=== PATIENT | female | born 1990 | race Caucasian/White ===

== ENCOUNTER 2017-12-09 19:09 | Emergency (ER) | payer OTHER, MEDICAID, SELFPAY ==
--- NOTE | 2017-12-09 19:17 | ED.LOWEXIN ---
HPI - Extremity Injury (Lower) <LAURA Sheridan - Last Filed: 12/09/17 22:06> General Chief Complaint: Back Pain/Injury Stated Complaint: RT SIDE OF BACK TIGHT AND HIP Time Seen by Provider: 12/09/17 19:17 Source: patient History of Present Illness HPI Narrative: 27-year-old female here for complaint of pain to right lower back for last 4 days. She denies any trauma to the right lower back. She reports increased pain with motion of the right lower back. She denies any loss of bladder or bowel control. She states that she may have done it by holding her child that has gotten older and heavier. Patient was able to ambulate into the emergency room today. She denies any other concerns or complaints at this time. Pain radiates from the right lower back down into the right buttocks and into the right thigh area. MD complaint: other Onset (ago): day(s) Related Data Home Medications Medication Instructions Recorded Confirmed cyclobenzaprine 10 mg PO BIDP PRN 12/09/17 Previous Rx's Medication Instructions Recorded norethindrone-e.estradiol-iron 1 tab PO QDAY #3 pac 03/06/17 [Tilia Fe] [medical marijuana] PRN PRN #0 04/09/17 loratadine [Claritin] 10 mg PO QDAY PRN #30 tab 05/24/17 mupirocin 1 jenny TOPICAL QID #22 gm 07/18/17 [weight watchers] #0 08/06/17 albuterol sulfate [Ventolin HFA] 0 INH Q4H #8 gm 08/30/17 metformin [Glucophage XR] 500 mg PO QDAY #30 tab 09/16/17 topiramate [Topamax] 25 mg PO QAM #30 tab 09/16/17 sertraline [Zoloft] 200 mg PO QDAY #60 tab 10/22/17 bupropion HCl [Wellbutrin XL] 300 mg PO QDAY #30 tab 10/24/17 naproxen [Naprosyn] 500 mg PO BIDCC #30 tab 12/02/17 clonazepam 0.5 mg tablet 1 mg PO BIDP PRN #60 tab 12/06/17 prednisone 40 mg PO DAILY #8 tab 12/09/17 Allergies Allergy/AdvReac Type Severity Reaction Status Date / Time gabapentin [GABAPENTIN] Allergy Unknown Verified 12/09/17 19:27 indomethacin [INDOMETHACIN] Allergy Unknown Verified 12/09/17 19:27 oxycodone [OXYCODONE] Allergy Unknown Verified 12/09/17 19:27 sulfamethoxazole Allergy Unknown Verified 12/09/17 19:27 [From BACTRIM] trimethoprim [From BACTRIM] Allergy Unknown Verified 12/09/17 19:27 Review of Systems <LAURA Sheridan - Last Filed: 12/09/17 22:06> Constitutional Denies chills, Denies fever(s), Denies lethargy and Denies weakness Eyes Denies change in vision, Denies eye discharge, Denies irritation and Denies loss of vision Cardiovascular Denies chest pain, Denies irregular heart rhythm, Denies lightheadedness, Denies palpitations and Denies orthopnea Gastrointestinal Gastrointestinal: Denies abdominal pain, Denies change in bowel habits, Denies diarrhea, Denies nausea and Denies vomiting Musculoskeletal Comments: Right lower back pain radiating into right upper extremity Integumentary/Breasts Denies pruritus, Denies erythema, Denies rash and Denies wounds Neurologic Denies confusion, Denies loss of vision and Denies weakness Psychiatric Denies anxiety, Denies confusion, Denies depression, Denies homicidal ideation and Denies suicidal ideation Endocrine Denies palpitations Exam <LAURA Sheridan - Last Filed: 12/09/17 22:06> Initial Vital Signs Initial Vital Signs: Vital Signs Temperature 98.7 F 12/09/17 19:21 Pulse Rate 107 H 12/09/17 19:21 Respiratory Rate 15 12/09/17 19:21 Blood Pressure 120/89 H 12/09/17 19:21 Pulse Oximetry 99 12/09/17 19:21 Const General: cooperative and well developed Nutritional Appearance: well nourished Orientation: alert, awake, oriented x3 and not confused HENMT Face and sinus: sinus tenderness and dry mucous membranes Mouth: oral mucosae normal and moist mucous membranes Throat: tonsils normal and uvula midline Eyes Conjunctivae: conjunctivae normal Sclera: sclerae normal Pupils: PERRL EOM: EOM intact bilaterally Resp Effort & Inspection: normal respiratory effort, able to speak in complete sentences, no respiratory distress and no use of accessory muscles Auscultation: clear to auscultation bilaterally, no rales, no rhonchi and no wheezes Cardio Rate: regular rate Rhythm: regular rhythm Heart Sounds: no click, no gallops, no murmurs and no rubs Pulses: normal peripheral pulses Back/Spine/Pelvis Other: Tenderness on palpation to the paraspinals of the right lumbar region. Muscle spasm to right lumbar paraspinals. No midline tenderness. No deformities. Distal sensation is intact. Distal range of motion is intact. Distal pulses intact Skin General: no rashes or lesions noted, No jaundice and No petechiae <Steve Xiong DO - Last Filed: 12/10/17 04:22> Initial Vital Signs Initial Vital Signs: Vital Signs Temperature 98.7 F 12/09/17 19:21 Pulse Rate 107 H 12/09/17 19:21 Respiratory Rate 15 12/09/17 19:21 Blood Pressure 120/89 H 12/09/17 19:21 Pulse Oximetry 99 12/09/17 19:21 Course <LAURA Sheridan - Last Filed: 12/09/17 22:06> Vital Signs - 8 hr 12/09/17 21:19 Temperature 96.9 F L Pulse Rate 99 H Respiratory Rate 16 Blood Pressure [Left Arm] 106/72 Pulse Oximetry 99 <DO Kassidy Wharton Last Filed: 12/10/17 04:22> Vital Signs - 8 hr 12/09/17 21:19 Temperature 96.9 F L Pulse Rate 99 H Respiratory Rate 16 Blood Pressure [Left Arm] 106/72 Pulse Oximetry 99 MDM - Extremity Injury (Lower) <LAURA Sheridan - Last Filed: 12/09/17 22:06> MDM Narrative Medical decision making narrative: Signs and symptoms presents as lumbar strain with sciatica. She is already prescribed cyclobenzaprine will have her continue taking muscle relaxers as prescribed. Skhe-ada-kirrsrc ibuprofen as needed for discomfort. She is given short course of prednisone to help with inflammation. Follow up with primary care provider. Return emergency room for any worsening symptoms. Heat to area 20 min at a time a few times date help keep muscles loose. Gentle range of motion to painful areas to also keep muscles loose. Discharge Plan Departure Patient Disposition: Home, Self-Care Clinical Impression: Lower back pain Discharge Date/Time: 12/09/17 21:31 Interventions: ED Discharge Assessment Last Done: 12/09/17 21:31 Instructions: DI for Low Back Pain Activity Restrictions/Additional Instructions: Signs and symptoms presents as lumbar strain with sciatica. Use already prescribed cyclobenzaprine as prescribed. [id number] ibuprofen as needed for discomfort. You are prescribed a hort course of prednisone to help with inflammation use as directed. Follow up with primary care provider. Return emergency room for any worsening symptoms. Heat to area 20 min at a time a few times date help keep muscles loose. Gentle range of motion to painful areas to also keep muscles loose. Prescriptions: New prednisone 20 mg tablet 40 mg PO DAILY Qty: 8 RF: 0 No Action norethindrone-e.estradiol-iron [Tilia Fe] 1 EACH tablet 1 tab PO QDAY Qty: 3 RF: 3 [medical marijuana] PRN PRNQty: 0 RF: 0 loratadine [Claritin] 10 MG tablet 10 mg PO QDAY PRNQty: 30 RF: 3 mupirocin 2 % ointment 1 jenny Topical QID Qty: 22 RF: 1 [weight watchers] Qty: 0 RF: 0 albuterol sulfate [Ventolin HFA] 90 MCG/PUFF HFA aerosol inhaler INH Q4H Qty: 8 RF: 0 topiramate [Topamax] 25 MG tablet 25 mg PO QAM Qty: 30 RF: 3 metformin [Glucophage XR] 500 MG tablet extended release 24 hr 500 mg PO QDAY Qty: 30 RF: 3 sertraline [Zoloft] 100 MG tablet 200 mg PO QDAY Qty: 60 RF: 3 bupropion HCl [Wellbutrin XL] 300 MG tablet extended release 24 hr 300 mg PO QDAY Qty: 30 RF: 3 naproxen [Naprosyn] 500 mg tablet 500 mg PO BIDCC Qty: 30 RF: 0 clonazepam 0.5 mg tablet 1 mg PO BIDP PRN (Reason: anxiety) Qty: 60 RF: 3 cyclobenzaprine 10 MG tablet 10 mg PO BIDP PRN (Reason: Pain, Moderate) RF: 0 Referrals: Vanda Dominguez PA-C [Primary Care Provider] -
[2017-12-09 19:21] VITALS: BP 120/89; PULSE 107; RESP 15; TEMP 37.1; O2SAT 99; BMI 42.5
--- NOTE | 2017-12-09 19:37 | PC.NURSE ---
rt hip/back pain, radiates down rt leg with numbness/tingling, no known injury, acute on chronic, amb ind with steady gait, also c/o urinary hesitancy/trouble emptying bladder,denies injury/fever/chills/incont/cp/soa or recent illness
[2017-12-09 21:19] VITALS: BP 106/72; PULSE 99; RESP 16; TEMP 36.1; O2SAT 99
== END 2017-12-09 21:31 | disposition home or self-care (01) ==
PROVIDERS: Emergency Provider Nurse Practitioner Family; Family Provider Specialist; PCP Physician Assistant
DX: M54.5 Low back pain (principal)
CPT/HCPCS: 99282

== ENCOUNTER → 2018-03-13 16:03 | Outpatient (CLI) | payer OTHER, MEDICAID, SELFPAY ==
[2018-03-13 17:37] LABS: Add Manual Diff / Slide Review NO; Basophils Percent Auto 0.7 % (0-2); Eosinophils Percent Auto 1.7 % (2-4); Hematocrit 39.4 % (36-46); Hemoglobin 13.5 g/dL (12.0-16.0); Lymphocytes Percent Auto 21.1 % (25-40); Mean Corpuscular HGB Conc 34.3 % (30-36); Mean Corpuscular Hemoglobin 28.5 PG (26-34); Monocytes Percent Auto 6.8 % (3-14); Neutrophils Absolute Auto 4700 /uL (3000-5900); Neutrophils Percent Auto 69.7 % (50-75); Platelet Count 264 X10^3/uL (150-400); Red Blood Cell Count 4.74 X10^6/uL (4.0-5.2); Red Cell Distribution Width 13.5 % (11.6-14.8); White Blood Cell Count 6.8 X10^3/uL (4.5-11.0)
[2018-03-13 17:49] LABS: Alanine Aminotransferase 39 IU/L (9-52); Albumin 4.3 g/dL (3.5-5.0); Albumin Globulin Ratio 1.3 (1.0-2.8); Alkaline Phosphatase 85 U/L (38-126); Aspartate Aminotransferase 25 IU/L (14-36); Bilirubin Total 0.2 mg/dL (0.2-1.3); Blood Urea Nitrogen 8 mg/dL (7-17); Calcium 9.4 mg/dL (8.4-10.2); Carbon Dioxide 27 mmol/L (22-32); Chloride 105 mmol/L (98-107); Estimated Glomerular Filt Rate > 60.0 mL/min (>60); Globulin 3.2 g/dL (1.7-4.1); Glucose 84 mg/dL (70-100); HEMOLYSIS < 15 (0-50); Potassium 4.2 mmol/L (3.4-5.1); Sodium 144 mmol/L (137-145); Total Protein 7.5 g/dL (6.3-8.2)
[2018-03-13 18:17] LABS: TSH w/ Reflex to FT4 1.49 uIU/mL (0.47-4.68)
== END ==
PROVIDERS: Family Provider Specialist; PCP Family Medicine
DX: F43.10 Post-traumatic stress disorder, unspecified (principal)
CPT/HCPCS: 36415; 80053; 84443; 85025

== ENCOUNTER → 2018-03-20 11:24 | Outpatient (CLI) | payer OTHER, MEDICAID, SELFPAY ==
--- NOTE | 2018-03-20 11:29 | DI.RAD.S_ITS ---
PROCEDURE: XR KNEE LT 3V INDICATIONS: left knee pain TECHNIQUE: 3 views of the knee were acquired. COMPARISON: None. FINDINGS: Bones: No fractures or dislocations. No suspicious bony lesions. Soft tissues: No joint effusion. No suspicious soft tissue calcifications. IMPRESSION: Normal for age, source of current symptoms is not seen. Dictated by: David Dela Cruz M.D. on 03/20/2018 at 12:06 Approved by: David Dela Cruz M.D. on 03/20/2018 at 12:07
--- NOTE | 2018-03-20 11:29 | DI.RAD.S_ITS ---
PROCEDURE: XR KNEE RT 3V INDICATIONS: left knee pain TECHNIQUE: 3 views of the knee were acquired. COMPARISON: None. FINDINGS: Bones: No fractures or dislocations. No suspicious bony lesions. Soft tissues: No joint effusion. No suspicious soft tissue calcifications. IMPRESSION: Normal for age, source of current symptoms is not seen. Dictated by: David Dela Cruz M.D. on 03/20/2018 at 12:07 Approved by: David Dela Cruz M.D. on 03/20/2018 at 12:07
== END ==
PROVIDERS: Family Provider Specialist; PCP Family Medicine; Visit Provider Physician Assistant
DX: M25.562 Pain in left knee (principal); M25.561 Pain in right knee
CPT/HCPCS: 73562

== ENCOUNTER → 2018-04-16 15:11 | Outpatient (CLI) | payer OTHER, MEDICAID, SELFPAY ==
--- NOTE | 2018-04-16 15:12 | DI.MRI.S_ITS ---
PROCEDURE: MR KNEE LT WO CON INDICATIONS: left KNEE PAIN TECHNIQUE: Noncontrast sagittal PD fast spin echo and T2 fast spin echo with fat saturation, sagittal 3-D FLASH with fat saturation; coronal T1 spin echo and PD fast spin echo with fat saturation, and axial PD fast spin echo with fat saturation through the knee. COMPARISON: [facility], CR, XR KNEE LT 3V, 03/20/2018, 11:08. FINDINGS: Image quality: Excellent. Menisci: The medial meniscus is intact. Linear high signal intensity horizontally traverses the anterior and posterior horns, as well as the body of the lateral meniscus, and demonstrates superior articular surface extension, indicating horizontal tearing. Small perivesical cyst is present posterolaterally. Cruciate ligaments: The anterior and posterior cruciate ligaments appear intact. Medial structures: The medial collateral ligament appears intact. Visualized portions of the pes anserinus tendons appear normal. No abnormal bursal fluid. Lateral structures: The lateral collateral ligament, long and short heads of the biceps femoris tendon appear intact. The popliteus tendon appears normal. Iliotibial band appears normal. Anterior structures: The quadriceps and patellar tendons appear intact. Patellar alignment is normal. No femoral trochlear dysplasia or ventral trochlear prominence. No edema in the infrapatellar fat pad. Bones and cartilage: No bone marrow contusions or fractures. The cartilage of the medial and lateral femorotibial compartments, as well as the patellofemoral compartment, appears normal in thickness. Joint space: There is physiologic knee joint fluid. No Dick's cyst. Normal appearing synovial plicae are incidentally noted. IMPRESSION: 1. Lateral meniscal tear. Dictated by: Timoteo Sims M.D. on 04/16/2018 at 15:56 Approved by: Timoteo Sims M.D. on 04/16/2018 at 15:59
== END ==
PROVIDERS: Family Provider Specialist; PCP Family Medicine; Visit Provider Physician Assistant
DX: S83.282A Other tear of lateral meniscus, current injury, left knee, initial encounter (principal); M25.562 Pain in left knee
CPT/HCPCS: 73721

== ENCOUNTER → 2018-10-13 09:57 | Outpatient (CLI) | payer OTHER, MEDICAID, SELFPAY | PROVIDERS: Family Provider Specialist; PCP Family Medicine; Visit Provider Family Medicine | DX: R52 Pain, unspecified (principal); R53.83 Other fatigue; R50.9 Fever, unspecified | CPT/HCPCS: 87400 ==

== ENCOUNTER 2018-11-24 18:17 | Emergency (ER) | payer OTHER, MEDICAID, SELFPAY ==
[2018-11-24] VITALS (7 sets, daily range): BP systolic 102–124; BP diastolic 59–77; PULSE 64–88; RESP 16–26; TEMP 36.7; O2SAT 94–100; BMI 46.3
--- NOTE | 2018-11-24 18:27 | ED_ITS ---
HPI - Arrhythmia/Palpitations General Chief Complaint: Anxiety Stated Complaint: Anxiety Time Seen by Provider: 11/24/18 18:27 Source: patient and EMS Mode of arrival: EMS Limitations: no limitations History of Present Illness HPI narrative: The patient arrives by EMS complaining of chest pain, specifically along the mid right costal margin. There is no radiation of pain. She has no associated dyspnea. She does have increased pain with deep breathing. She denies a cardiac history. She is poking in broken words, complaint of anxiety. She tells me she has been like this for 2 days. She does take anxiety medications. She denies recent illness. She has had no fever or chills. She has had no cough, no chronic chest pain. She does not smoke cigarettes. She does not drink alcohol. Related Data Home Medications Medication Instructions Recorded Confirmed sertraline 100 mg tablet 150 mg PO QDAY tab 10/13/18 Previous Rx's Medication Instructions Recorded [medical marijuana] PRN PRN #0 04/09/17 albuterol sulfate HFA 90 2 puff INHALATION Q4H #8 gram 03/05/18 mcg/actuation aerosol inhaler cyclobenzaprine 10 mg tablet 10 mg PO BEDTIME #30 tab 10/13/18 metformin 500 mg tablet 500 mg PO DAILY #30 tab 10/13/18 naproxen 500 mg tablet 500 mg PO BID #60 tab 10/13/18 lorazepam [Ativan] 1 mg PO Q6H PRN #10 tab 11/24/18 Allergies Allergy/AdvReac Type Severity Reaction Status Date / Time gabapentin [GABAPENTIN] Allergy Unknown Verified 11/24/18 18:37 indomethacin [INDOMETHACIN] Allergy Unknown Verified 11/24/18 18:37 oxycodone [OXYCODONE] Allergy Unknown Verified 11/24/18 18:37 sulfamethoxazole Allergy Unknown Verified 11/24/18 18:37 [From BACTRIM] trimethoprim [From BACTRIM] Allergy Unknown Verified 11/24/18 18:37 Review of Systems Constitutional Denies chills, Denies fatigue, Denies fever(s), Denies lethargy and Reports weakness Eyes Denies change in vision, Denies eye discharge and Denies irritation ENT Ears, Nose, Mouth, and Throat: Denies dizziness, Denies neck pain, Denies sore throat and Denies throat swelling Cardiovascular Reports as per HPI, Denies chest pain, Denies syncope, Denies irregular heart rhythm, Denies lightheadedness, Denies palpitations, Denies dyspnea and Denies orthopnea Respiratory Denies cough, Denies dyspnea and Denies wheezing Gastrointestinal Gastrointestinal: Denies abdominal pain, Denies diarrhea, Denies nausea and De nies vomiting Musculoskeletal Denies back pain, Reports muscle weakness and Denies neck pain Integumentary/Breasts Denies pruritus, Denies erythema, Denies rash and Denies wounds Neurologic Denies confusion, Denies dizziness, Denies syncope, Denies tremor(s) and Reports weakness Comments: Difficulty speaking. Psychiatric Reports anxiety, Denies confusion, Reports depression, Denies homicidal ideation and Denies suicidal ideation Endocrine Denies fatigue and Denies palpitations Allergic/Immunologic Denies throat swelling and Denies wheezing [facility] Medical History Anxiety (Chronic) Carpal tunnel syndrome (Chronic 2011) Chronic back pain (Chronic) DDD (degenerative disc disease), lumbar (Chronic 2008) Depression (Chronic) Heavy menstrual period (Chronic) Hip pain (Chronic 2008) Irregular menstrual cycle (Chronic) PCOS (polycystic ovarian syndrome) (Chronic) PTSD (post-traumatic stress disorder) (Chronic) Painful menstrual periods (Chronic) Pineal gland cyst (Chronic) Sleep apnea (Chronic) Surgical History Hx of section (Resolved 06/2016) Status post cholecystectomy (06/17/15) Status post tonsillectomy and adenoidectomy Family History (Updated 03/03/18 @ 14:57 by Steffanie Ervin LPN) Mother Age: 60 Uterine cancer Mental health problem Father No problems noted. Grandfather Diabetes mellitus Social History Smoking Status: Never smoker Family History Mother Age: 60 Uterine cancer Mental health problem Father No problems noted. Grandfather Diabetes mellitus Social History Smoking Status: Never smoker Exam Initial Vital Signs Initial Vital Signs: Vital Signs Temperature 98.1 F 11/24/18 18:29 Pulse Rate 88 11/24/18 18:29 Respiratory Rate 26 H 11/24/18 18:29 Blood Pressure 114/60 11/24/18 18:29 Pulse Oximetry 96 11/24/18 18:29 Const General: cooperative, well developed, in distress and anxious Nutritional Appearance: well nourished Orientation: alert, awake and oriented x3 HENMT Head: normocephalic and atraumatic Mouth: moist mucous membranes Teeth and gingiva: dentition normal Throat: tonsils normal and uvula midline Eyes General: appearance normal, both eyes and all related structures Eyelids: eyelids normal Conjunctivae: conjunctivae normal Sclera: sclerae normal Pupils: PERRL EOM: EOM intact bilaterally Neck Neck: normal visual inspection, trachea midline, No lymphadenopathy, No midline deformity and No JVD Chest Chest: normal inspection of the chest Resp Effort & Inspection: normal respiratory effort, able to speak in complete sentences, no respiratory distress and no use of accessory muscles Auscultation: clear to auscultation bilaterally, no rales, no rhonchi and no wheezes Cardio Rate: regular rate Rhythm: regular rhythm Heart Sounds: no click, no gallops, no murmurs and no rubs Pulses: normal peripheral pulses Back/Spine/Pelvis Back: No CVA tenderness Cervical Spine: cervical ROM normal Thoracic/Lumbar Spine: thoracic and lumbar spine normal to inspection Skin General: no rashes or lesions noted, No jaundice and No petechiae Neuro General: alert, oriented x3, gait normal and no focal motor deficits Speech: speech normal Extrem General: full ROM, no clubbing, cyanosis or edema, no pedal edema and no calf tenderness Psych Mental Status: mental status grossly normal Attitude: cooperative Thought Content: normal and suicidality Judgment: judgment good Course Orders Ordered: Discontinued Medications Ketorolac Tromethamine (Toradol) 30 mg IV NOW ONE Stop: 11/24/18 19:16 Last Admin: 11/24/18 19:37 Dose: 30 mg Lorazepam (Ativan) 1 mg IV NOW ONE Stop: 11/24/18 19:16 Last Admin: 11/24/18 19:37 Dose: 1 mg Lorazepam (Ativan) 1 mg PO NOW ONE Stop: 11/24/18 22:19 Last Admin: 11/24/18 22:40 Dose: 1 mg Vital Signs - 8 hr 11/24/18 21:30 11/24/18 22:00 11/24/18 22:51 Pulse Rate 81 74 76 Respiratory Rate 25 H 20 16 Blood Pressure 103/67 Blood Pressure [Left Arm] 111/69 105/62 Pulse Oximetry 94 94 96 MDM - Arrhythmia/Palpitations Lab Data Result diagrams: 11/24/18 19:28 11/24/18 19:28 Lab Results 11/24/18 11/24/18 11/24/18 Range/Units 18:45 19:28 19:28 WBC 9.4 (4.5-11.0) X10^3/uL RBC 4.64 (4.0-5.2) X10^6/uL Hgb 12.9 (12.0-16.0) g/dL Hct 39.0 (36-46) % MCV 83.9 (80-100) fL MCH 27.9 (26-34) PG MCHC 33.2 (30-36) % RDW 14.1 (11.6-14.8) % Plt Count 166 (150-400) X10^3/uL Neut % (Auto) 68.1 (50-75) % Lymph % (Auto) 22.6 L (25-40) % [facility] % (Auto) 6.9 (3-14) % Eos % (Auto) 1.3 L (2-4) % Baso % (Auto) 1.1 (0-2) % Neut # (Auto) 6400 (8903-1732) /uL Lymph # (Auto) 2100 (3047-7959) /uL [facility] # (Auto) 700 (0-900) /uL Eos # (Auto) 100 (0-450) /uL Baso # (Auto) 100 (0-100) /uL Sodium 136 L (137-145) mmol/L Potassium 4.7 (3.4-5.1) mmol/L Chloride 100 (98-107) mmol/L Carbon Dioxide 25 (22-32) mmol/L BUN 16 (7-17) mg/dL Creatinine 0.50 L (0.52-1.04) mg/dL Estimated GFR > 60.0 (>60) mL/min BUN/Creatinine Ratio 32.0 H (6-22) Glucose 94 (70-100) mg/dL Calcium 9.2 (8.4-10.2) mg/dL Total Bilirubin 0.3 (0.2-1.3) mg/dL AST 26 (14-36) IU/L ALT 41 (9-52) IU/L Alkaline Phosphatase 87 (38-126) U/L Total Creatine Kinase TNP Troponin I TNP Total Protein 7.5 (6.3-8.2) g/dL Albumin 4.1 (3.5-5.0) g/dL Globulin 3.4 (1.7-4.1) g/dL Albumin/Globulin Ratio 1.2 (1.0-2.8) Urine Opiates Screen Negative (Negative) Ur Oxycodone Screen Positive H (Negative) Urine Methadone Screen Negative (Negative) Ur Barbiturates Screen Negative (Negative) U Tricyclic Antidepress Negative (Negative) Ur Phencyclidine Scrn Negative (Negative) Ur Amphetamines Screen Negative (Negative) U Methamphetamines Scrn Negative (Negative) Ur MDMA Scrn (Ecstasy) Negative (Negative) U Benzodiazepines Scrn Negative (Negative) Urine Cocaine Screen Negative (Negative) U Marijuana (THC) Screen Positive H (Negative) Point of Care Testing Test Results Negative Urine Dip Bedside Urine Glucose Negative Bedside Urine Bilirubin - Negative Bedside Urine Ketone - Negative Urine Specific [place] 1.015 Bedside Urine Occult Blood - Negative Bedside Urine pH 7.0 Bedside Urine Protein - Negative Bedside Urine Urobilinogen - Negative Bedside Urine Nitrite - Negative Bedside Urine Leukocytes - Negative Esterase ECG Data Attestation: I personally reviewed and interpreted this ECG as follows: (Normal sinus rhythm rate 77 beats per minute. Normal intervals. No ectopy. No acute ST T wave changes. Normal study.) Discharge Plan Departure Patient Disposition: Home Clinical Impression: Anxiety, Acute costochondritis Discharge Date/Time: 11/24/18 22:52 Interventions: ED Discharge Assessment Last Done: 11/24/18 22:51 Instructions: Costochondritis, DI for Anxiety -- Adult Activity Restrictions/Additional Instructions: Continue your current medications. Ativan 1 mg every 6 hours as needed for added relief of anxiety. Advil 3 tablets every 6 hours for pain. Call your doctor tomorrow, arrange a appointment. He discussed your treatment for anxiety. Return the ER as needed. Prescriptions: New lorazepam [Ativan] 1 mg tablet 1 mg PO Q6H PRN (Reason: anxiety) Qty: 10 RF: 0 No Action sertraline [Zoloft] 100 mg tablet 150 mg PO QDAY RF: 0 cyclobenzaprine 10 mg tablet 10 mg PO BEDTIME Qty: 30 RF: 2 naproxen 500 mg tablet 500 mg PO BID Qty: 60 RF: 0 metformin 500 mg tablet 500 mg PO DAILY Qty: 30 RF: 5 [medical marijuana] PRN PRNQty: 0 RF: 0 albuterol sulfate [Ventolin HFA] 90 mcg/actuation HFA aerosol inhaler 2 puff INHALATION Q4H Qty: 8 RF: 3 Referrals: Lillian Turner DO [Primary Care Provider] -
[2018-11-24 19:06] LABS: Urine Amphetamines Negative (Negative); Urine Barbiturates Negative (Negative); Urine Benzodiazepines Negative (Negative); Urine Cocaine Negative (Negative); Urine MDMA Negative (Negative); Urine Methadone Negative (Negative); Urine Methamphetamines Negative (Negative); Urine Morphine/Opi cutoff 2000 Negative (Negative); Urine Oxycodone Positive (Negative); Urine Phencyclidine Negative (Negative); Urine Tetrahydrocannabinol Positive (Negative); Urine Tricyclic Antidepressant Negative (Negative)
--- NOTE | 2018-11-24 19:34 | PC.NURSE ---
Patient screaming and pulling while PIV being inserted;
[2018-11-24] MEDS: KETOROLAC 60 MG/2 ML VIAL 30 MG IV (19:37)
[2018-11-24] MEDS: LORazepam 2 MG/ML SYRINGE 1 MG IV (19:37)
--- NOTE | 2018-11-24 19:43 | PC.NURSE ---
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
[2018-11-24 19:51] LABS: Hemoglobin 12.9 g/dL (12.0-16.0); Red Blood Cell Count 4.64 X10^6/uL (4.0-5.2); White Blood Cell Count 9.4 X10^3/uL (4.5-11.0)
[2018-11-24 19:52] LABS: Add Manual Diff / Slide Review NO; Alanine Aminotransferase 41 IU/L (9-52); Albumin 4.1 g/dL (3.5-5.0); Albumin Globulin Ratio 1.2 (1.0-2.8); Alkaline Phosphatase 87 U/L (38-126); Aspartate Aminotransferase 26 IU/L (14-36); Basophils Percent Auto 1.1 % (0-2); Bilirubin Total 0.3 mg/dL (0.2-1.3); Blood Urea Nitrogen 16 mg/dL (7-17); Calcium 9.2 mg/dL (8.4-10.2); Carbon Dioxide 25 mmol/L (22-32); Chloride 100 mmol/L (98-107); Eosinophils Percent Auto 1.3 % (2-4); Estimated Glomerular Filt Rate > 60.0 mL/min (>60); Globulin 3.4 g/dL (1.7-4.1); Glucose 94 mg/dL (70-100); HEMOLYSIS 23 (0-50); Lymphocytes Percent Auto 22.6 % (25-40); Mean Corpuscular HGB Conc 33.2 % (30-36); Mean Corpuscular Hemoglobin 27.9 PG (26-34); Mean Corpuscular Volume 83.9 fL (80-100); Monocytes Percent Auto 6.9 % (3-14); Neutrophils Percent Auto 68.1 % (50-75); Platelet Count 166 X10^3/uL (150-400); Potassium 4.7 mmol/L (3.4-5.1); Red Cell Distribution Width 14.1 % (11.6-14.8); Sodium 136 mmol/L (137-145); Total Protein 7.5 g/dL (6.3-8.2)
[2018-11-24 19:53] LABS: Basophils Absolute Auto 100 /uL (0-100); Eosinophils Absolute Auto 100 /uL (0-450); Lymphocytes Absolute Auto 2100 /uL (1100-4500); Monocytes Absolute Auto 700 /uL (0-900); Neutrophils Absolute Auto 6400 /uL (1500-7000)
--- NOTE | 2018-11-24 20:34 | PC.NURSE ---
patient given 240ml of water per provider. patient tolerated well. no new orders at this time.
[2018-11-24] MEDS: LORazepam 0.5 MG TABLET 1 MG PO (22:40)
== END 2018-11-24 22:52 | disposition home or self-care (01) ==
PROVIDERS: Emergency Provider Emergency Medicine; Family Provider Specialist; PCP Family Medicine
DX: F41.9 Anxiety disorder, unspecified (principal); M94.0 Chondrocostal junction syndrome [Tietze]
CPT/HCPCS: 36591; 80053; 80305; 81003; 81025; 82553; 85025; 93005; 93010; 96374; 96375; 96376; 99284; 99285; J1885; J2060

== ENCOUNTER 2018-12-01 12:18 | Emergency (ER) | payer OTHER, MEDICAID, SELFPAY ==
[2018-12-01 12:21] VITALS: BP 126/84; PULSE 82; RESP 14; TEMP 36.4; O2SAT 100
[2018-12-01 13:38] LABS: Bacteria Urine Few (2-10); RBC Urine 0-1/HPF (0-5/HPF); Squamous Epithelial Cell Urine 1-5 /HPF (0-5/HPF); WBC Urine 1-5/HPF (0-5/HPF)
[2018-12-01 13:39] LABS: Culture Indicated Urine Specimen Cultured
[2018-12-01 15:12] VITALS: BP 132/76; PULSE 62; O2SAT 99
--- NOTE | 2018-12-01 15:13 | PC.NURSE ---
Patient states bilateral legs are numb. States she thinks this could be her anxiety, or her mouth infection, or that she is sick. Informed pt that we will take care of her and to try and relax. Pt states she has taken her anxiety medications today but has ran out of her Ativan that she was given. Patient tearful and does not speak in complete sentences while talking
[2018-12-01 15:45] VITALS: BP 142/94; PULSE 62; RESP 20; O2SAT 100
[2018-12-01 15:51] LABS: Add Manual Diff / Slide Review NO; Basophils Absolute Auto 100 /uL (0-100); Eosinophils Absolute Auto 200 /uL (0-450); Eosinophils Percent Auto 1.6 % (2-4); Hemoglobin 13.5 g/dL (12.0-16.0); Lymphocytes Absolute Auto 1600 /uL (1100-4500); Lymphocytes Percent Auto 16.3 % (25-40); Mean Corpuscular HGB Conc 33.7 % (30-36); Mean Corpuscular Hemoglobin 27.9 PG (26-34); Mean Corpuscular Volume 82.8 fL (80-100); Monocytes Absolute Auto 500 /uL (0-900); Monocytes Percent Auto 5.4 % (3-14); Neutrophils Absolute Auto 7500 /uL (1500-7000); Neutrophils Percent Auto 75.7 % (50-75); Platelet Count 244 X10^3/uL (150-400); Red Blood Cell Count 4.84 X10^6/uL (4.0-5.2); Red Cell Distribution Width 14.6 % (11.6-14.8)
[2018-12-01 15:55] LABS: Alanine Aminotransferase 42 IU/L (9-52); Albumin 4.2 g/dL (3.5-5.0); Albumin Globulin Ratio 1.2 (1.0-2.8); Alkaline Phosphatase 104 U/L (38-126); Aspartate Aminotransferase 22 IU/L (14-36); Bilirubin Total 0.4 mg/dL (0.2-1.3); Blood Urea Nitrogen 7 mg/dL (7-17); Carbon Dioxide 23 mmol/L (22-32); Chloride 105 mmol/L (98-107); Creatine Kinase 42 U/L (30-135); Estimated Glomerular Filt Rate > 60.0 mL/min (>60); Globulin 3.5 g/dL (1.7-4.1); Glucose 91 mg/dL (70-100); HEMOLYSIS < 15 (0-50); Potassium 3.7 mmol/L (3.4-5.1); Sodium 139 mmol/L (137-145); Total Protein 7.7 g/dL (6.3-8.2)
[2018-12-01 16:07] LABS: Troponin I < 0.012 ng/mL (0.01-0.034)
--- NOTE | 2018-12-01 16:09 | ED.ANXIETY ---
HPI - Anxiety General Chief Complaint: Anxiety Stated Complaint: Stress/Hyperventilation/ Passed Out Time Seen by Provider: 12/01/18 16:09 Source: patient, family and EMS Mode of arrival: EMS Limitations: no limitations History of Present Illness HPI narrative: 28-year-old female comes in with complaint of headache, pain in her eye, states that her chest and arm sort of hurt her that she had pulling. She states that it was sort of her entire body feels like everything is pulling she took 2 muscle relaxers last night and then 2 hours later took a 3rd this did not resolve her symptoms. She did take some naproxen. She has also been taking BuSpar for 2 weeks. It helped with her panic attacks but she does not know if that is playing into her symptoms. 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 Patient is denying any shortness of breath currently. She has had some nausea and vomiting but currently. Patient is not having any new urinary changes. She often is constipated but no new changes. She does have anxiety and panic attacks. She is not sure if this is the same thing. She has a lot of stress her issues alcohol abuse and is frequently intubated. She also has a young child with multiple medical issues. Related Data Home Medications Medication Instructions Recorded Confirmed sertraline 100 mg tablet 200 mg PO QPM tab 10/13/18 12/01/18 [medical marijuana] 1 dose PO PRN PRN 12/01/18 12/01/18 albuterol sulfate [Ventolin HFA] 2 puff INHALATION Q4H PRN 12/01/18 12/01/18 buspirone 15 mg PO BID 12/01/18 12/01/18 prazosin 2 mg PO BEDTIME 12/01/18 12/01/18 Previous Rx's Medication Instructions Recorded cyclobenzaprine 10 mg tablet 10 mg PO BEDTIME #30 tab 10/13/18 metformin 500 mg tablet 500 mg PO DAILY #30 tab 10/13/18 naproxen 500 mg tablet 500 mg PO BID #60 tab 10/13/18 lorazepam [Ativan] 1 mg PO Q6H PRN #10 tab 11/24/18 Allergies Allergy/AdvReac Type Severity Reaction Status Date / Time gabapentin [GABAPENTIN] Allergy Unknown Verified 11/24/18 18:37 indomethacin [INDOMETHACIN] Allergy Unknown Verified 11/24/18 18:37 oxycodone [OXYCODONE] Allergy Unknown Verified 11/24/18 18:37 sulfamethoxazole Allergy Unknown Verified 11/24/18 18:37 [From BACTRIM] trimethoprim [From BACTRIM] Allergy Unknown Verified 11/24/18 18:37 Review of Systems Review of Systems ROS Unobtainable: All systems reviewed & are unremarkable except as noted in HPI and below PFSH Medical History Anxiety (Chronic) Carpal tunnel syndrome (Chronic 2011) Chronic back pain (Chronic) DDD (degenerative disc disease), lumbar (Chronic 2008) Depression (Chronic) Heavy menstrual period (Chronic) Hip pain (Chronic 2008) Irregular menstrual cycle (Chronic) PCOS (polycystic ovarian syndrome) (Chronic) PTSD (post-traumatic stress disorder) (Chronic) Painful menstrual periods (Chronic) Pineal gland cyst (Chronic) Sleep apnea (Chronic) Surgical History Hx of section (Resolved 06/2016) Status post cholecystectomy (06/17/15) Status post tonsillectomy and adenoidectomy Family History Mother Age: 61 Uterine cancer Mental health problem Father No problems noted. Grandfather Diabetes mellitus Social History Smoking Status: Never smoker Family History Mother Age: 61 Uterine cancer Mental health problem Father No problems noted. Grandfather Diabetes mellitus Social History Smoking Status: Never smoker Exam Narrative Exam Narrative: GEN: Well-nourished obese female, alert and oriented x 3, patient appears to be in mild distress. HEENT: Atraumatic, pupils are equal round reactive to light, extraocular movements are intact, nares are clear, TMs are clear with no fluid. Throat is clear without any exudates, erythema, tonsillar enlargement or uvular deviation HEART: Regular rate and rhythm without murmur, clicks, rubs. LUNGS:Lungs clear to auscultation, no wheezes, rales, crackles, chest moves symmetrically ABD:bowel sounds normal, soft, non-tender, no guarding, rebound, rigidity, no masses noted, no hepatosplenomegaly :No CVA tenderness MSCL: Non-tender, no muscle atrophy, muscles strength 5/5 upper and lower extremities, full range of motion NEURO:CN 2-12 intact, sensation normal, normal gait. PSYCH: Anxiety Initial Vital Signs Initial Vital Signs: Vital Signs Temperature 97.5 F L 12/01/18 12:21 Pulse Rate 82 12/01/18 12:21 Respiratory Rate 14 12/01/18 12:21 Blood Pressure 126/84 12/01/18 12:21 Pulse Oximetry 100 12/01/18 12:21 Scores GCS Hunter coma scale eye opening: Spontaneous [place] coma scale verbal response: Orientated [place] coma scale motor response: Obey commands Hunter coma scale total score: 15 Course Orders Ordered: ED Orders 12/01/18 12:39 Urine Culture Stat Urine Microscopic Stat 12/01/18 14:47 EKG-12 Lead Stat 12/01/18 15:34 Complete Blood Count AUTO DIFF Stat Comprehensive Metabolic Panel Stat Troponin & CK Cardiac Panel Stat 12/01/18 16:35 CT head/brain wo con Stat 12/01/18 18:18 Consult to Coating Operator Stat Discontinued Medications Acetaminophen (Tylenol) 975 mg PO NOW ONE Stop: 12/01/18 16:36 Last Admin: 12/01/18 16:43 Dose: 975 mg Lorazepam (Ativan) 1 mg PO NOW ONE Stop: 12/01/18 16:36 Last Admin: 12/01/18 16:44 Dose: 1 mg Vital Signs - 8 hr 12/01/18 12:21 12/01/18 15:12 12/01/18 15:45 Temperature 97.5 F L Pulse Rate 82 62 62 Respiratory Rate 14 20 Blood Pressure 126/84 Blood Pressure [Right Arm] 132/76 142/94 H Pulse Oximetry 100 99 100 12/01/18 16:54 12/01/18 17:21 12/01/18 18:25 Temperature 98.1 F Pulse Rate 77 74 77 Respiratory Rate 17 Blood Pressure Blood Pressure [Right Arm] 106/54 L 107/60 112/77 Pulse Oximetry 100 98 98 MDM - Anxiety Lab Data Attestation: I reviewed the patient's lab results. Result diagrams: 12/01/18 15:34 12/01/18 15:34 Lab Results 12/01/18 12/01/18 12/01/18 Range/Units 12:39 15:34 15:34 WBC 10.0 (4.5-11.0) X10^3/uL RBC 4.84 (4.0-5.2) X10^6/uL Hgb 13.5 (12.0-16.0) g/dL Hct 40.0 (36-46) % MCV 82.8 (80-100) fL MCH 27.9 (26-34) PG MCHC 33.7 (30-36) % RDW 14.6 (11.6-14.8) % Plt Count 244 (150-400) X10^3/uL Neut % (Auto) 75.7 H (50-75) % Lymph % (Auto) 16.3 L (25-40) % [place] % (Auto) 5.4 (3-14) % Eos % (Auto) 1.6 L (2-4) % Baso % (Auto) 1.0 (0-2) % Neut # (Auto) 7500 H (6839-8620) /uL Lymph # (Auto) 1600 (0973-3964) /uL [place] # (Auto) 500 (0-900) /uL Eos # (Auto) 200 (0-450) /uL Baso # (Auto) 100 (0-100) /uL Sodium 139 (137-145) mmol/L Potassium 3.7 (3.4-5.1) mmol/L Chloride 105 (98-107) mmol/L Carbon Dioxide 23 (22-32) mmol/L BUN 7 (7-17) mg/dL Creatinine 0.50 L (0.52-1.04) mg/dL Estimated GFR > 60.0 (>60) mL/min BUN/Creatinine Ratio 14.0 (6-22) Glucose 91 (70-100) mg/dL Calcium 9.0 (8.4-10.2) mg/dL Total Bilirubin 0.4 (0.2-1.3) mg/dL AST 22 (14-36) IU/L ALT 42 (9-52) IU/L Alkaline Phosphatase 104 (38-126) U/L Total Creatine Kinase 42 (30-135) U/L CK-MB (CK-2) TNP CK-MB (CK-2) Rel Index TNP Troponin I < 0.012 (0.01-0.034) ng/mL Total Protein 7.7 (6.3-8.2) g/dL Albumin 4.2 (3.5-5.0) g/dL Globulin 3.5 (1.7-4.1) g/dL Albumin/Globulin Ratio 1.2 (1.0-2.8) Urine RBC 0-1/hpf (0-5/HPF) Urine WBC 1-5/hpf (0-5/HPF) Ur Squamous Epith Cells 1-5 /hpf (0-5/HPF) Urine Bacteria Few (2-10) H (None) Ur Culture Indicated? Specimen cultured Point of Care Testing Test Results Negative Urine Dip Bedside Urine Glucose Negative Bedside Urine Bilirubin - Negative Bedside Urine Ketone - Negative Bedside Urine Occult Blood - Negative Bedside Urine Protein - Negative Bedside Urine Urobilinogen - Negative Bedside Urine Nitrite - Negative Bedside Urine Leukocytes - Negative Esterase Imaging Data CT scan - head: Radiologist's impression: Deb Prince 28 F 1990 [place] [address] CT Scan Report Signed Patient: Deb Prince AMR#: [id number] : 1990Acct:[id number] Age/Sex: 28 / FDate of Service: 12/01/18 Loc: ED Accession Number: [id number] Procedure: CT head/brain wo con Ordering Provider: Stephanie Fried D.O. PROCEDURE: CT HEAD/BRAIN WO CON INDICATIONS: headache, hx pineal gland cyst TECHNIQUE: Noncontrast 4.5 mm thick angled axial sections acquired from the foramen magnum to the vertex, with coronal and sagittal reformats. For radiation dose reduction, the following was used: automated exposure control, adjustment of mA and/or kV according to patient size. COMPARISON: [facility], MR, BRAIN W&WO CONTRAST, 02/03/2016, 8:58. FINDINGS: Image quality: Excellent. CSF spaces: Basal cisterns are patent. No extra-axial fluid collections. Ventricles are normal in size and shape. Brain: There is a 9 x 13 mm cyst in the pineal area, unchanged compared to the prior MRI dated 02/03/2016. No midline shift. No intracranial hemorrhage. [place]-white matter interface is normal. Skull and face: Calvarium and visualized facial bones are intact, without suspicious lesions. Sinuses: Visualized sinuses and mastoids are clear. IMPRESSION: 1. No acute intracranial abnormalities. 2. 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 No hydrocephalus. Dictated by: Marie Farmer M.D. on 12/01/2018 at 15:55 Approved by: Marie Farmer M.D. on 12/01/2018 at 16:04 ECG Data Attestation: I personally reviewed and interpreted this ECG as follows: Interpretation: Sinus rhythm with a rate of 71 P are 128 QRS of 100 and QTC of 412. No ST changes appreciated. MDM Narrative Medical decision making narrative: Patient is feeling improved after some Ativan p.o. and Tylenol. Social Work also evaluated her. I suspect patient is having a little bit of migraine as well as stress reaction. She has significant daily stress in her marital relationship is frequently hospitalized and intubated for alcohol abuse, she has a young child with multiple medical issues and she also has currently been treated for anxiety, PTSD. Patient was feeling much better head CT did not show any acute changes to show her pineal gland cyst with no change. Lab work does not show any major changes as well. Point care urine was negative but was sent for microscopy and cultured. test was negative as well.Patient was able to ambulate and felt much better and felt safe to return home. She is accompanied by her [id number] whom she is close too. Discharge Plan Departure Patient Disposition: Home Clinical Impression: Anxiety Headache Qualifiers: Headache type: unspecified Discharge Date/Time: 12/01/18 18:39 Interventions: ED Discharge Assessment Last Done: 12/01/18 18:36 Activity Restrictions/Additional Instructions: Follow-up with your physician in the next 2-3 days for recheck. Call for an appointment. Continue home medications as prescribed. Return to the emergency department for passing out, new chest pain, shortness of breath, persistent vomiting, vision changes, new weakness, numbness or other new or concerning symptoms. Prescriptions: No Action sertraline [Zoloft] 100 mg tablet 200 mg PO QPM RF: 0 cyclobenzaprine 10 mg tablet 10 mg PO BEDTIME Qty: 30 RF: 2 naproxen 500 mg tablet 500 mg PO BID Qty: 60 RF: 0 metformin 500 mg tablet 500 mg PO DAILY Qty: 30 RF: 5 prazosin 1 mg capsule 2 mg PO BEDTIME RF: 0 buspirone 15 mg tablet 15 mg PO BID RF: 0 albuterol sulfate [Ventolin HFA] 90 mcg/actuation HFA aerosol inhaler 2 puff INHALATION Q4H PRN (Reason: Shortness Of Breath) RF: 0 [medical marijuana] 1 dose PO PRN PRN (Reason: as directed) RF: 0 lorazepam [Ativan] 1 mg tablet 1 mg PO Q6H PRN (Reason: anxiety) Qty: 10 RF: 0 Referrals: Lillian Turner DO [Primary Care Provider] -
--- NOTE | 2018-12-01 16:20 | ED_ITS ---
HPI - Anxiety General Chief Complaint: Anxiety Stated Complaint: Stress/Hyperventilation/ Passed Out Time Seen by Provider: 12/01/18 16:09 Source: patient, family and EMS Mode of arrival: EMS Limitations: no limitations History of Present Illness HPI narrative: 28-year-old female comes in with complaint of headache, pain in her eye, states that her chest and arm sort of hurt her that she had pulling. She states that it was sort of her entire body feels like everything is pulling she took 2 muscle relaxers last night and then 2 hours later took a 3rd this did not resolve her symptoms. She did take some naproxen. She has also been taking BuSpar for 2 weeks. It helped with her panic attacks but she does not know if that is playing into her symptoms. 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 Patient is denying any shortness of breath currently. She has had some nausea and vomiting but currently. Patient is not having any new urinary changes. She often is constipated but no new changes. She does have anxiety and panic attacks. She is not sure if this is the same thing. She has a lot of stress her issues alcohol abuse and is frequently intubated. She also has a young child with multiple medical issues. Related Data Home Medications Medication Instructions Recorded Confirmed sertraline 100 mg tablet 200 mg PO QPM tab 10/13/18 12/01/18 [medical marijuana] 1 dose PO PRN PRN 12/01/18 12/01/18 albuterol sulfate [Ventolin HFA] 2 puff INHALATION Q4H PRN 12/01/18 12/01/18 buspirone 15 mg PO BID 12/01/18 12/01/18 prazosin 2 mg PO BEDTIME 12/01/18 12/01/18 Previous Rx's Medication Instructions Recorded cyclobenzaprine 10 mg tablet 10 mg PO BEDTIME #30 tab 10/13/18 metformin 500 mg tablet 500 mg PO DAILY #30 tab 10/13/18 naproxen 500 mg tablet 500 mg PO BID #60 tab 10/13/18 lorazepam [Ativan] 1 mg PO Q6H PRN #10 tab 11/24/18 Allergies Allergy/AdvReac Type Severity Reaction Status Date / Time gabapentin [GABAPENTIN] Allergy Unknown Verified 11/24/18 18:37 indomethacin [INDOMETHACIN] Allergy Unknown Verified 11/24/18 18:37 oxycodone [OXYCODONE] Allergy Unknown Verified 11/24/18 18:37 sulfamethoxazole Allergy Unknown Verified 11/24/18 18:37 [From BACTRIM] trimethoprim [From BACTRIM] Allergy Unknown Verified 11/24/18 18:37 Review of Systems Review of Systems ROS Unobtainable: All systems reviewed & are unremarkable except as noted in HPI and below PFSH Medical History Anxiety (Chronic) Carpal tunnel syndrome (Chronic 2011) Chronic back pain (Chronic) DDD (degenerative disc disease), lumbar (Chronic 2008) Depression (Chronic) Heavy menstrual period (Chronic) Hip pain (Chronic 2008) Irregular menstrual cycle (Chronic) PCOS (polycystic ovarian syndrome) (Chronic) PTSD (post-traumatic stress disorder) (Chronic) Painful menstrual periods (Chronic) Pineal gland cyst (Chronic) Sleep apnea (Chronic) Surgical History Hx of section (Resolved 06/2016) Status post cholecystectomy (06/17/15) Status post tonsillectomy and adenoidectomy Family History Mother Age: 61 Uterine cancer Mental health problem Father No problems noted. Grandfather Diabetes mellitus Social History Smoking Status: Never smoker Family History Mother Age: 61 Uterine cancer Mental health problem Father No problems noted. Grandfather Diabetes mellitus Social History Smoking Status: Never smoker Exam Narrative Exam Narrative: GEN: Well-nourished obese female, alert and oriented x 3, patient appears to be in mild distress. HEENT: Atraumatic, pupils are equal round reactive to light, extraocular movements are intact, nares are clear, TMs are clear with no fluid. Throat is clear without any exudates, erythema, tonsillar enlargement or uvular deviation HEART: Regular rate and rhythm without murmur, clicks, rubs. LUNGS:Lungs clear to auscultation, no wheezes, rales, crackles, chest moves symmetrically ABD:bowel sounds normal, soft, non-tender, no guarding, rebound, rigidity, no masses noted, no hepatosplenomegaly :No CVA tenderness MSCL: Non-tender, no muscle atrophy, muscles strength 5/5 upper and lower extremities, full range of motion NEURO:CN 2-12 intact, sensation normal, normal gait. PSYCH: Anxiety Initial Vital Signs Initial Vital Signs: Vital Signs Temperature 97.5 F L 12/01/18 12:21 Pulse Rate 82 12/01/18 12:21 Respiratory Rate 14 12/01/18 12:21 Blood Pressure 126/84 12/01/18 12:21 Pulse Oximetry 100 12/01/18 12:21 Scores GCS [place] coma scale eye opening: Spontaneous [place] coma scale verbal response: Orientated [place] coma scale motor response: Obey commands [place] coma scale total score: 15 Course Orders Ordered: ED Orders 12/01/18 12:39 Urine Culture Stat Urine Microscopic Stat 12/01/18 14:47 EKG-12 Lead Stat 12/01/18 15:34 Complete Blood Count AUTO DIFF Stat Comprehensive Metabolic Panel Stat Troponin & CK Cardiac Panel Stat 12/01/18 16:35 CT head/brain wo con Stat 12/01/18 18:18 Consult to Hauling Contractor Stat Discontinued Medications Acetaminophen (Tylenol) 975 mg PO NOW ONE Stop: 12/01/18 16:36 Last Admin: 12/01/18 16:43 Dose: 975 mg Lorazepam (Ativan) 1 mg PO NOW ONE Stop: 12/01/18 16:36 Last Admin: 12/01/18 16:44 Dose: 1 mg Vital Signs - 8 hr 12/01/18 12:21 12/01/18 15:12 12/01/18 15:45 Temperature 97.5 F L Pulse Rate 82 62 62 Respiratory Rate 14 20 Blood Pressure 126/84 Blood Pressure [Right Arm] 132/76 142/94 H Pulse Oximetry 100 99 100 12/01/18 16:54 12/01/18 17:21 12/01/18 18:25 Temperature 98.1 F Pulse Rate 77 74 77 Respiratory Rate 17 Blood Pressure Blood Pressure [Right Arm] 106/54 L 107/60 112/77 Pulse Oximetry 100 98 98 MDM - Anxiety Lab Data Attestation: I reviewed the patient's lab results. Result diagrams: 12/01/18 15:34 12/01/18 15:34 Lab Results 12/01/18 12/01/18 12/01/18 Range/Units 12:39 15:34 15:34 WBC 10.0 (4.5-11.0) X10^3/uL RBC 4.84 (4.0-5.2) X10^6/uL Hgb 13.5 (12.0-16.0) g/dL Hct 40.0 (36-46) % MCV 82.8 (80-100) fL MCH 27.9 (26-34) PG MCHC 33.7 (30-36) % RDW 14.6 (11.6-14.8) % Plt Count 244 (150-400) X10^3/uL Neut % (Auto) 75.7 H (50-75) % Lymph % (Auto) 16.3 L (25-40) % [place] % (Auto) 5.4 (3-14) % Eos % (Auto) 1.6 L (2-4) % Baso % (Auto) 1.0 (0-2) % Neut # (Auto) 7500 H (3426-4974) /uL Lymph # (Auto) 1600 (3878-3620) /uL [place] # (Auto) 500 (0-900) /uL Eos # (Auto) 200 (0-450) /uL Baso # (Auto) 100 (0-100) /uL Sodium 139 (137-145) mmol/L Potassium 3.7 (3.4-5.1) mmol/L Chloride 105 (98-107) mmol/L Carbon Dioxide 23 (22-32) mmol/L BUN 7 (7-17) mg/dL Creatinine 0.50 L (0.52-1.04) mg/dL Estimated GFR > 60.0 (>60) mL/min BUN/Creatinine Ratio 14.0 (6-22) Glucose 91 (70-100) mg/dL Calcium 9.0 (8.4-10.2) mg/dL Total Bilirubin 0.4 (0.2-1.3) mg/dL AST 22 (14-36) IU/L ALT 42 (9-52) IU/L Alkaline Phosphatase 104 (38-126) U/L Total Creatine Kinase 42 (30-135) U/L CK-MB (CK-2) TNP CK-MB (CK-2) Rel Index TNP Troponin I < 0.012 (0.01-0.034) ng/mL Total Protein 7.7 (6.3-8.2) g/dL Albumin 4.2 (3.5-5.0) g/dL Globulin 3.5 (1.7-4.1) g/dL Albumin/Globulin Ratio 1.2 (1.0-2.8) Urine RBC 0-1/hpf (0-5/HPF) Urine WBC 1-5/hpf (0-5/HPF) Ur Squamous Epith Cells 1-5 /hpf (0-5/HPF) Urine Bacteria Few (2-10) H (None) Ur Culture Indicated? Specimen cultured Point of Care Testing Test Results Negative Urine Dip Bedside Urine Glucose Negative Bedside Urine Bilirubin - Negative Bedside Urine Ketone - Negative Bedside Urine Occult Blood - Negative Bedside Urine Protein - Negative Bedside Urine Urobilinogen - Negative Bedside Urine Nitrite - Negative Bedside Urine Leukocytes - Negative Esterase Imaging Data CT scan - head: Radiologist's impression: eDb Prince 28 [address] 1990 [place] [address] CT Scan Report Signed Patient: Deb Prince AMR#: [id number] : 1990Acct:[id number] Age/Sex: 28 / FDate of Service: 12/01/18 Loc: ED Accession Number: [id number] Procedure: CT head/brain wo con Ordering Provider: Stephanie Fried D.O. PROCEDURE: CT HEAD/BRAIN WO CON INDICATIONS: headache, hx pineal gland cyst TECHNIQUE: Noncontrast 4.5 mm thick angled axial sections acquired from the foramen magnum to the vertex, with coronal and sagittal reformats. For radiation dose reduction, the following was used: automated exposure control, adjustment of mA and/or kV according to patient size. COMPARISON: [facility], MR, BRAIN W&WO CONTRAST, 02/03/2016, 8:58. FINDINGS: Image quality: Excellent. CSF spaces: Basal cisterns are patent. No extra-axial fluid collections. Ventricles are normal in size and shape. Brain: There is a 9 x 13 mm cyst in the pineal area, unchanged compared to the prior MRI dated 02/03/2016. No midline shift. No intracranial hemorrhage. [place]-white matter interface is normal. Skull and face: Calvarium and visualized facial bones are intact, without suspicious lesions. Sinuses: Visualized sinuses and mastoids are clear. IMPRESSION: 1. No acute intracranial abnormalities. 2. 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 No hydrocephalus. Dictated by: Marie Farmer M.D. on 12/01/2018 at 15:55 Approved by: Marie Farmer M.D. on 12/01/2018 at 16:04 ECG Data Attestation: I personally reviewed and interpreted this ECG as follows: Interpretation: Sinus rhythm with a rate of 71 P are 128 QRS of 100 and QTC of 412. No ST changes appreciated. MDM Narrative Medical decision making narrative: Patient is feeling improved after some Ativan p.o. and Tylenol. Social Work also evaluated her. I suspect patient is having a little bit of migraine as well as stress reaction. She has significant daily stress in her marital relationship is frequently hospitalized and intub ated for alcohol abuse, she has a young child with multiple medical issues and she also has currently been treated for anxiety, PTSD. Patient was feeling much better head CT did not show any acute changes to show her pineal gland cyst with no change. Lab work does not show any major changes as well. Point care urine was negative but was sent for microscopy and cultured. test was nega tive as well.Patient was able to ambulate and felt much better and felt safe to return home. She is accompanied by her [id number] whom she is close too. Discharge Plan Departure Patient Disposition: Home Clinical Impression: Anxiety Headache Qualifiers: Headache type: unspecified Discharge Date/Time: 12/01/18 18:39 Interventions: ED Discharge Assessment Last Done: 12/01/18 18:36 Activity Restrictions/Additional Instructions: Follow-up with your physician in the next 2-3 days for recheck. Call for an appointment. Continue home medications as prescribed. Return to the emergency department for passing out, new chest pain, shortness of breath, persistent vomiting, vision changes, new weakness, numbness or other new or concerning symptoms. Prescriptions: No Action sertraline [Zoloft] 100 mg tablet 200 mg PO QPM RF: 0 cyclobenzaprine 10 mg tablet 10 mg PO BEDTIME Qty: 30 RF: 2 naproxen 500 mg tablet 500 mg PO BID Qty: 60 RF: 0 metformin 500 mg tablet 500 mg PO DAILY Qty: 30 RF: 5 prazosin 1 mg capsule 2 mg PO BEDTIME RF: 0 buspirone 15 mg tablet 15 mg PO BID RF: 0 albuterol sulfate [Ventolin HFA] 90 mcg/actuation HFA aerosol inhaler 2 puff INHALATION Q4H PRN (Reason: Shortness Of Breath) RF: 0 [medical marijuana] 1 dose PO PRN PRN (Reason: as directed) RF: 0 lorazepam [Ativan] 1 mg tablet 1 mg PO Q6H PRN (Reason: anxiety) Qty: 10 RF: 0 Referrals: Lillian Turner DO [Primary Care Provider] -
--- NOTE | 2018-12-01 16:35 | DI.CT.S_ITS ---
PROCEDURE: CT HEAD/BRAIN WO CON INDICATIONS: headache, hx pineal gland cyst TECHNIQUE: Noncontrast 4.5 mm thick angled axial sections acquired from the foramen magnum to the vertex, with coronal and sagittal reformats. For radiation dose reduction, the following was used: automated exposure control, adjustment of mA and/or kV according to patient size. COMPARISON: [facility], MR, BRAIN W&WO CONTRAST, 02/03/2016, 8:58. FINDINGS: Image quality: Excellent. CSF spaces: Basal cisterns are patent. No extra-axial fluid collections. Ventricles are normal in size and shape. Brain: There is a 9 x 13 mm cyst in the pineal area, unchanged compared to the prior MRI dated 02/03/2016. No midline shift. No intracranial hemorrhage. Villa-white matter interface is normal. Skull and face: Calvarium and visualized facial bones are intact, without suspicious lesions. Sinuses: Visualized sinuses and mastoids are clear. IMPRESSION: 1. No acute intracranial abnormalities. 2. 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 No hydrocephalus. Dictated by: Marie Farmre M.D. on 12/01/2018 at 15:55 Approved by: Marie Farmer M.D. on 12/01/2018 at 16:04
[2018-12-01] MEDS: ACETAMINOPHEN 325 MG TABLET 975 MG PO (16:43)
[2018-12-01] MEDS: LORazepam 0.5 MG TABLET 1 MG PO (16:44)
[2018-12-01 16:54] VITALS: BP 106/54; PULSE 77; O2SAT 100
[2018-12-01 17:21] VITALS: BP 107/60; PULSE 74; O2SAT 98
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
[2018-12-01 18:25] VITALS: BP 112/77; PULSE 77; RESP 17; TEMP 36.7; O2SAT 98
== END 2018-12-01 18:39 | disposition home or self-care (01) ==
PROVIDERS: Nurse Practitioner; Emergency Provider Emergency Medicine; PCP Family Medicine
DX: F41.9 Anxiety disorder, unspecified (principal); R51 Headache; R07.89 Other chest pain
CPT/HCPCS: 36415; 70450; 80053; 81003; 81015; 81025; 82550; 84484; 85025; 87086; 93005; 93010; 99283; 99285

== ENCOUNTER 2019-11-14 11:52 | Emergency (ER) | payer OTHER, MEDICAID, SELFPAY ==
[2019-11-14 12:10] VITALS: BP 157/94; PULSE 71; RESP 14; TEMP 36.4; O2SAT 98
--- NOTE | 2019-11-14 12:46 | PC.NURSE ---
Addendum entered by Sriram Hu 11/14/19 12:51: Original Note: Sriram Hu on sitter watch duty @12:45. Pt calm sitting with mother inlaw at the moment.
[2019-11-14] MEDS: ACETAMINOPHEN 325 MG TABLET 650 MG PO ×2 (12:52→21:35)
[2019-11-14] MEDS: LORazepam 0.5 MG TABLET 1 MG PO ×2 (12:59→21:34)
[2019-11-14 13:12] LABS: UR Morphine/Opiate cutoff 300 Negative (Negative); Ur Creatinine Normal (Normal); Ur Specific Gravity Normal (Normal); Urine Amphetamines Negative (Negative); Urine Barbiturates Negative (Negative); Urine Benzodiazepines Negative (Negative); Urine Cocaine Negative (Negative); Urine MDMA Negative (Negative); Urine Methadone Negative (Negative); Urine Methamphetamines Negative (Negative); Urine Oxycodone Negative (Negative); Urine Phencyclidine Negative (Negative); Urine Tetrahydrocannabinol Positive (Negative); Urine Tricyclic Antidepressant Negative (Negative); Urine pH Normal (Normal)
[2019-11-14 13:18] LABS: Bacteria Urine Moderate (10-30); Culture Indicated Urine Cult Not Indicated; RBC Urine 0-1/HPF (0-5/HPF); Squamous Epithelial Cell Urine 5-10 /HPF (0-5/HPF); WBC Urine 1-5/HPF (0-5/HPF)
--- NOTE | 2019-11-14 13:27 | ED.PSYCH ---
HPI - Psych <Stephanie Valdivia, SEWAGE DISPOSAL WORKER-BC - Last Filed: 11/14/19 21:14> General Chief Complaint: Psychiatric Symptoms Stated Complaint: COUPLE DAYS BEEN SUICIDAL WANTING TO KILL HERSELF Time Seen by Provider: 11/14/19 12:08 Source: patient and family Mode of arrival: Ambulatory Limitations: no limitations History of Present Illness HPI Narrative: The patient is a 29-year-old female nonsmoker, PTSD who presents with a chief complaint of suicidal thoughts and ideations. She presents with her [id number]. The patient states that she has been feeling unwell recently, has been taking her sertraline and propanolol for anxiety. She restarted her lithium last night after not taking it for several months. She states that she has multiple plans to kill herself, her [id number] states that she was hallucinating last night. The patient states that she says everything is real. The patient states that she has been increasingly stressed lately with coronavirus epidemic, staying in a small house, her recently returning from alcohol rehab. The patient states she has been very stressed recently with her 's alcohol problems. He has become critically ill and intubated multiple times due to alcohol overdose. The patient denies any alcohol or drugs other than marijuana. She states she is having trouble eating, sleeping, not drinking enough water and not being able to take care of her self. She does complain of multiple physical complaints including chronic dental pain, loose stools and headache. She denies any fevers shortness of breath chest pain. She denies any nausea vomiting. She does complain of some right ear pain Related Data Home Medications Medication Instructions Recorded Confirmed sertraline 100 mg tablet 200 mg PO QPM tab 10/13/18 12/09/18 [medical marijuana] 1 dose PO PRN PRN 12/01/18 12/09/18 buspirone 15 mg PO BID 12/01/18 12/09/18 prazosin 2 mg PO BEDTIME 12/01/18 12/09/18 Previous Rx's Medication Instructions Recorded naproxen 500 mg tablet 500 mg PO BID #60 tab 10/13/18 clonazepam 1 mg tablet 1 mg PO BID #30 tab 12/05/18 cyclobenzaprine 10 mg tablet 10 mg PO BEDTIME #30 tab 03/09/19 metformin 500 mg tablet 500 mg PO DAILY #30 tab 08/06/19 albuterol sulfate 90 mcg/actuation 2 puff INHALATION Q6H PRN #8 gram 10/12/19 aerosol inhaler Allergies Allergy/AdvReac Type Severity Reaction Status Date / Time gabapentin [GABAPENTIN] Allergy Unknown Verified 12/09/18 11:13 indomethacin [INDOMETHACIN] Allergy Unknown Verified 12/09/18 11:13 oxycodone [OXYCODONE] Allergy Unknown Verified 12/09/18 11:13 sulfamethoxazole Allergy Unknown Verified 12/09/18 11:13 [From BACTRIM] trimethoprim [From BACTRIM] Allergy Unknown Verified 12/09/18 11:13 Review of Systems <BHAVESH Rdz - Last Filed: 11/14/19 21:14> Review of Systems Narrative: GENERAL: Denies chills, fatigue, malaise, fever, sweats. HEENT: Denies sinus pain, ear pain, sore throat, difficulty swallowing, dizziness. RESPIRATORY: Denies dyspnea, cough, wheezing, hemoptysis, sputum. CARDIOVASCULAR: See HPI GASTROINTESTINAL: See HPI : Denies dysuria, frequency, incontinence, hematuria, urinary retention. MUSCULOSKELETAL: denies weakness, joint pain, or bony pain SKIN: Denies rash, skin lesions, or other NEUROLOGIC: Denies weakness, headache, numbness, change in speech, confusion, seizures, incoordination. PSYCHIATRIC: See HPI 12 point review of systems is negative except for those stated above Patient History <BHAVESH Rdz - Last Filed: 11/14/19 21:14> Medical History Anxiety (Chronic) Carpal tunnel syndrome (Chronic 2011) Chronic back pain (Chronic) DDD (degenerative disc disease), lumbar (Chronic 2008) Depression (Chronic) Heavy menstrual period (Chronic) Hip pain (Chronic 2008) Irregular menstrual cycle (Chronic) Painful menstrual periods (Chronic) PCOS (polycystic ovarian syndrome) (Chronic) Pineal gland cyst (Chronic) PTSD (post-traumatic stress disorder) (Chronic) Sleep apnea (Chronic) Surgical History Hx of section (Resolved 06/2016) Status post cholecystectomy (06/17/15) Status post tonsillectomy and adenoidectomy Family History Mother Age: 61 Uterine cancer Mental health problem Father No problems noted. Grandfather Diabetes mellitus Social History Smoking Status: Never smoker Smoking Status: Never smoker alcohol intake frequency: 0-2 drinks per day Substance Use Type: marijuana Exam <BHAVESH Rdz - Last Filed: 11/14/19 21:14> Narrative Exam Narrative: GENERAL: Obese female, teary HEAD: Atraumatic. Normocephalic. No temporal or scalp tenderness. EYES: Pupils equal round and reactive. Extraocular motions intact. No scleral icterus. No injection or drainage. ENT: Nose without bleeding, purulent drainage or septal hematoma. Throat without erythema, tonsillar hypertrophy or exudate. Uvula midline. Airway patent. Bilateral TMs pearly woodward. NECK: Trachea midline. No JVD or lymphadenopathy. Supple, nontender, no meningeal signs. CARDIOVASCULAR: Regular rate and rhythm without murmurs, gallops, or rubs. RESPIRATORY: Clear to auscultation. Breath sounds equal bilaterally. No wheezes, rales, or rhonchi. GASTROINTESTINAL: Abdomen soft, non-tender, nondistended. No hepato-splenomegaly, or palpable masses. No guarding. EXTREMITIES: No clubbing, cyanosis, or edema. No joint tenderness, effusion, or edema noted. BACK: Nontender without deformity or crepitance. No flank tenderness. NEURO: AOx3. Tangential, teary. SKIN: No rash or erythema on visible skin Initial Vital Signs Initial Vital Signs: Vital Signs Temperature 97.6 F 11/14/19 12:10 Pulse Rate 71 11/14/19 12:10 Respiratory Rate 14 11/14/19 12:10 Blood Pressure 157/94 H 11/14/19 12:10 Pulse Oximetry 98 11/14/19 12:10 <Rafa Bee DO - Last Filed: 11/14/19 21:48> Initial Vital Signs Initial Vital Signs: Vital Signs Temperature 97.6 F 11/14/19 12:10 Pulse Rate 71 11/14/19 12:10 Respiratory Rate 14 11/14/19 12:10 Blood Pressure 157/94 H 11/14/19 12:10 Pulse Oximetry 98 11/14/19 12:10 Scores <Stephanie ULYSSES ValdiviaBC - Last Filed: 11/14/19 21:14> GCS Hunter coma scale eye opening: Spontaneous [place] coma scale verbal response: Orientated [place] coma scale motor response: Obey commands Hunter coma scale total score: 15 Course <Stephanie ValdiviaULYSSESBC - Last Filed: 11/14/19 21:14> Orders Ordered: ED Orders 11/14/19 13:03 Urine Drug Screen, Rapid Stat Urine Microscopic Stat 11/14/19 13:36 Acetaminophen Stat Complete Blood Count AUTO DIFF Stat Comprehensive Metabolic Panel Stat Ethanol (ETOH) Stat Ida Stat Partial Thromboplastin Time Stat Prothrombin Time INR Stat Salicylate Stat Thyroid Stimulating Hormone Stat Discontinued Medications Acetaminophen (Tylenol) 650 mg PO NOW ONE Stop: 11/14/19 12:34 Last Admin: 11/14/19 12:52 Dose: 650 mg Documented by: ALVARADO Acetaminophen (Tylenol) 650 mg PO NOW ONE Stop: 11/14/19 21:02 Last Admin: 11/14/19 21:35 Dose: 650 mg Documented by: ERICKA Loratadine (Claritin) 10 mg PO NOW ONE Stop: 11/14/19 21:02 Lorazepam (Ativan) 1 mg PO NOW ONE Stop: 11/14/19 12:55 Last Admin: 11/14/19 12:59 Dose: 1 mg Documented by: ALVARADO Lorazepam (Ativan) 1 mg PO NOW ONE Stop: 11/14/19 19:23 Last Admin: 11/14/19 21:34 Dose: 1 mg Documented by: ERICKA Consultations Consultation #1: Sriram VIEIRA in with patient. Patient appears teary. Time: 16:00 Consultation #2: Sriram VIEIRA and with patient, discussing voluntary admission. Patient remains voluntary at this time. I discussed with ISHA, patient remains suicidal, suicidal plan with attempt yesterday as well as paranoid. Per ISHA, she attempted to overdose on ibuprofen and was stopped by her . She also tried to jump out of the car on the way here today. She appears to be paranoid, and does not know were reality ends and her video games start. Patient remains voluntary, understanding of plan for admission. Time: 20:00 Vital Signs Vital signs: Vital Signs - 8 hr 11/14/19 17:43 Pulse Rate 68 Blood Pressure [Right Arm] 117/71 Pulse Oximetry 97 <Rafa Bee DO - Last Filed: 11/14/19 21:48> Orders Ordered: ED Orders 11/14/19 13:03 Urine Drug Screen, Rapid Stat Urine Microscopic Stat 11/14/19 13:36 Acetaminophen Stat Complete Blood Count AUTO DIFF Stat Comprehensive Metabolic Panel Stat Ethanol (ETOH) Stat Ida Stat Partial Thromboplastin Time Stat Prothrombin Time INR Stat Salicylate Stat Thyroid Stimulating Hormone Stat Discontinued Medications Acetaminophen (Tylenol) 650 mg PO NOW ONE Stop: 11/14/19 12:34 Last Admin: 11/14/19 12:52 Dose: 650 mg Documented by: ALVARADO Acetaminophen (Tylenol) 650 mg PO NOW ONE Stop: 11/14/19 21:02 Last Admin: 11/14/19 21:35 Dose: 650 mg Documented by: ERICKA Loratadine (Claritin) 10 mg PO NOW ONE Stop: 11/14/19 21:02 Lorazepam (Ativan) 1 mg PO NOW ONE Stop: 11/14/19 12:55 Last Admin: 11/14/19 12:59 Dose: 1 mg Documented by: ALVARADO Lorazepam (Ativan) 1 mg PO NOW ONE Stop: 11/14/19 19:23 Last Admin: 11/14/19 21:34 Dose: 1 mg Documented by: ERICKA Vital Signs Vital signs: Vital Signs - 8 hr 11/14/19 17:43 Pulse Rate 68 Blood Pressure [Right Arm] 117/71 Pulse Oximetry 97 MDM - Psych <BHAVESH Rdz - Last Filed: 11/14/19 21:14> Differential Diagnosis Differential diagnosis: Likely suicidal ideation and depression Lab Data Attestation: I reviewed the patient's lab results. Result diagrams: 11/14/19 13:36 11/14/19 13:36 Labs: Lab Results 11/14/19 11/14/19 11/14/19 Range/Units 13:03 13:03 13:36 WBC 8.9 (4.5-11.0) X10^3/uL RBC 4.85 (4.0-5.2) X10^6/uL Hgb 13.6 (12.0-16.0) g/dL Hct 40.0 (36-46) % MCV 82.6 (80-100) fL MCH 28.1 (26-34) PG MCHC 34.0 (30-36) % RDW 14.4 (11.6-14.8) % Plt Count 234 (150-400) X10^3/uL Neut % (Auto) 67.2 (50-75) % Lymph % (Auto) 21.1 L (25-40) % [place] % (Auto) 9.2 (3-14) % Eos % (Auto) 1.3 L (2-4) % Baso % (Auto) 1.2 (0-2) % Neut # (Auto) 5900 (4186-3858) /uL Lymph # (Auto) 1900 (3549-1844) /uL [place] # (Auto) 800 (0-900) /uL Eos # (Auto) 100 (0-450) /uL Baso # (Auto) 100 (0-100) /uL PT (10.1-12.7) SECONDS INR (0.9-1.3) APTT (26.4-36.2) SECONDS Sodium (137-145) mmol/L Potassium (3.4-5.1) mmol/L Chloride (98-107) mmol/L Carbon Dioxide (22-32) mmol/L BUN (7-17) mg/dL Creatinine (0.52-1.04) mg/dL Estimated GFR (>60) mL/min BUN/Creatinine Ratio (6-22) Glucose (70-100) mg/dL Calcium (8.4-10.2) mg/dL Total Bilirubin (0.2-1.3) mg/dL AST (14-36) IU/L ALT (<35) IU/L Alkaline Phosphatase (38-126) U/L Total Protein (6.3-8.2) g/dL Albumin (3.5-5.0) g/dL Globulin (1.7-4.1) g/dL Albumin/Globulin Ratio (1.0-2.8) TSH (0.47-4.68) uIU/mL Urine RBC 0-1/hpf (0-5/HPF) Urine WBC 1-5/hpf (0-5/HPF) Ur Squamous Epith Cells 5-10 /hpf H (0-5/HPF) Urine Bacteria Moderate (10-30) H (None) Ur Culture Indicated? Cult not indicated Salicylates (<20) mg/dL U Opiates 300ng/mL cut Negative (Negative) Ur Oxycodone Screen Negative (Negative) Urine Methadone Screen Negative (Negative) Acetaminophen (10-30) ug/mL Ur Barbiturates Screen Negative (Negative) U Tricyclic Antidepress Negative (Negative) Ur Phencyclidine Scrn Negative (Negative) Ur Amphetamines Screen Negative (Negative) U Methamphetamines Scrn Negative (Negative) Ur MDMA Scrn (Ecstasy) Negative (Negative) U Benzodiazepines Scrn Negative (Negative) Ida (0.6-1.2) mmol/L Urine Cocaine Screen Negative (Negative) U Marijuana (THC) Screen Positive H (Negative) Ethyl Alcohol ( - 10) mg/dL 11/14/19 11/14/19 11/14/19 Range/Units 13:36 13:36 13:36 WBC (4.5-11.0) X10^3/uL RBC (4.0-5.2) X10^6/uL Hgb (12.0-16.0) g/dL Hct (36-46) % MCV (80-100) fL MCH (26-34) PG MCHC (30-36) % RDW (11.6-14.8) % Plt Count (150-400) X10^3/uL Neut % (Auto) (50-75) % Lymph % (Auto) (25-40) % [place] % (Auto) (3-14) % Eos % (Auto) (2-4) % Baso % (Auto) (0-2) % Neut # (Auto) (9208-5061) /uL Lymph # (Auto) (1263-9514) /uL [place] # (Auto) (0-900) /uL Eos # (Auto) (0-450) /uL Baso # (Auto) (0-100) /uL PT 12.0 (10.1-12.7) SECONDS INR 1.0 (0.9-1.3) APTT 32 (26.4-36.2) SECONDS Sodium 139 (137-145) mmol/L Potassium 3.6 (3.4-5.1) mmol/L Chloride 104 (98-107) mmol/L Carbon Dioxide 26 (22-32) mmol/L BUN 7 (7-17) mg/dL Creatinine 0.54 (0.52-1.04) mg/dL Estimated GFR > 60.0 (>60) mL/min BUN/Creatinine Ratio 13.0 (6-22) Glucose 107 H (70-100) mg/dL Calcium 9.2 (8.4-10.2) mg/dL Total Bilirubin 0.5 (0.2-1.3) mg/dL AST 23 (14-36) IU/L ALT 30 (<35) IU/L Alkaline Phosphatase 91 (38-126) U/L Total Protein 7.7 (6.3-8.2) g/dL Albumin 4.2 (3.5-5.0) g/dL Globulin 3.5 (1.7-4.1) g/dL Albumin/Globulin Ratio 1.2 (1.0-2.8) TSH 0.83 (0.47-4.68) uIU/mL Urine RBC (0-5/HPF) Urine WBC (0-5/HPF) Ur Squamous Epith Cells (0-5/HPF) Urine Bacteria (None) Ur Culture Indicated? Salicylates < 1.0 (<20) mg/dL U Opiates 300ng/mL cut (Negative) Ur Oxycodone Screen (Negative) Urine Methadone Screen (Negative) Acetaminophen < 10 L (10-30) ug/mL Ur Barbiturates Screen (Negative) U Tricyclic Antidepress (Negative) Ur Phencyclidine Scrn (Negative) Ur Amphetamines Screen (Negative) U Methamphetamines Scrn (Negative) Ur MDMA Scrn (Ecstasy) (Negative) U Benzodiazepines Scrn (Negative) Ida < 0.2 L (0.6-1.2) mmol/L Urine Cocaine Screen (Negative) U Marijuana (THC) Screen (Negative) Ethyl Alcohol < 10 ( - 10) mg/dL Point of Care Testing Test Results Negative Urine Dip Bedside Urine Glucose Negative Bedside Urine Bilirubin - Negative Bedside Urine Ketone - Negative Urine Specific [place] 1.015 Bedside Urine Occult Blood - Negative Bedside Urine pH 6.5 Bedside Urine Protein +/- 15 Bedside Urine Urobilinogen +/- 1mg Bedside Urine Nitrite - Negative Bedside Urine Leukocytes + 70 Esterase ECG Data Attestation: I personally reviewed and interpreted this ECG as follows: Interpretation: Since rhythm. Ventricular rate 50. P.r. 122. QRS 98. Viewed by Dr Bonny DAWN Narrative Medical decision making narrative: The patient is a 29-year-old female who presents with a chief complaint of suicidal ideation, depression anxiety. She received a thorough PREPARED FOODS SERVICE TEAM MEMBER evaluation, who suggested hospitalization for this patient given her unstable home life, recent suicide attempt, and suicidal plans. She is resistant to hospitalization initially, the next step set and would like help for her. Her motivation includes her family and her daughter. Patient remains on one-to-one sitter for suicidal ideation and plan. She has been cooperative throughout her stay in the emergency department. She was given Tylenol and Motrin in the emergency department for headache and earache. Patient was signed out to at 9:00 p.m. with PREPARED FOODS SERVICE TEAM MEMBER still working on placement. <Rafa Bee, DO - Last Filed: 11/14/19 21:48> Lab Data Labs: Lab Results 11/14/19 11/14/19 11/14/19 Range/Units 13:03 13:03 13:36 WBC 8.9 (4.5-11.0) X10^3/uL RBC 4.85 (4.0-5.2) X10^6/uL Hgb 13.6 (12.0-16.0) g/dL Hct 40.0 (36-46) % MCV 82.6 (80-100) fL MCH 28.1 (26-34) PG MCHC 34.0 (30-36) % RDW 14.4 (11.6-14.8) % Plt Count 234 (150-400) X10^3/uL Neut % (Auto) 67.2 (50-75) % Lymph % (Auto) 21.1 L (25-40) % [place] % (Auto) 9.2 (3-14) % Eos % (Auto) 1.3 L (2-4) % Baso % (Auto) 1.2 (0-2) % Neut # (Auto) 5900 (9427-0932) /uL Lymph # (Auto) 1900 (3627-4723) /uL [place] # (Auto) 800 (0-900) /uL Eos # (Auto) 100 (0-450) /uL Baso # (Auto) 100 (0-100) /uL PT (10.1-12.7) SECONDS INR (0.9-1.3) APTT (26.4-36.2) SECONDS Sodium (137-145) mmol/L Potassium (3.4-5.1) mmol/L Chloride (98-107) mmol/L Carbon Dioxide (22-32) mmol/L BUN (7-17) mg/dL Creatinine (0.52-1.04) mg/dL Estimated GFR (>60) mL/min BUN/Creatinine Ratio (6-22) Glucose (70-100) mg/dL Calcium (8.4-10.2) mg/dL Total Bilirubin (0.2-1.3) mg/dL AST (14-36) IU/L ALT (<35) IU/L Alkaline Phosphatase (38-126) U/L Total Protein (6.3-8.2) g/dL Albumin (3.5-5.0) g/dL Globulin (1.7-4.1) g/dL Albumin/Globulin Ratio (1.0-2.8) TSH (0.47-4.68) uIU/mL Urine RBC 0-1/hpf (0-5/HPF) Urine WBC 1-5/hpf (0-5/HPF) Ur Squamous Epith Cells 5-10 /hpf H (0-5/HPF) Urine Bacteria Moderate (10-30) H (None) Ur Culture Indicated? Cult not indicated Salicylates (<20) mg/dL U Opiates 300ng/mL cut Negative (Negative) Ur Oxycodone Screen Negative (Negative) Urine Methadone Screen Negative (Negative) Acetaminophen (10-30) ug/mL Ur Barbiturates Screen Negative (Negative) U Tricyclic Antidepress Negative (Negative) Ur Phencyclidine Scrn Negative (Negative) Ur Amphetamines Screen Negative (Negative) U Methamphetamines Scrn Negative (Negative) Ur MDMA Scrn (Ecstasy) Negative (Negative) U Benzodiazepines Scrn Negative (Negative) Ida (0.6-1.2) mmol/L Urine Cocaine Screen Negative (Negative) U Marijuana (THC) Screen Positive H (Negative) Ethyl Alcohol ( - 10) mg/dL 11/14/19 11/14/19 11/14/19 Range/Units 13:36 13:36 13:36 WBC (4.5-11.0) X10^3/uL RBC (4.0-5.2) X10^6/uL Hgb (12.0-16.0) g/dL Hct (36-46) % MCV (80-100) fL MCH (26-34) PG MCHC (30-36) % RDW (11.6-14.8) % Plt Count (150-400) X10^3/uL Neut % (Auto) (50-75) % Lymph % (Auto) (25-40) % [place] % (Auto) (3-14) % Eos % (Auto) (2-4) % Baso % (Auto) (0-2) % Neut # (Auto) (4789-0415) /uL Lymph # (Auto) (6044-3270) /uL [place] # (Auto) (0-900) /uL Eos # (Auto) (0-450) /uL Baso # (Auto) (0-100) /uL PT 12.0 (10.1-12.7) SECONDS INR 1.0 (0.9-1.3) APTT 32 (26.4-36.2) SECONDS Sodium 139 (137-145) mmol/L Potassium 3.6 (3.4-5.1) mmol/L Chloride 104 (98-107) mmol/L Carbon Dioxide 26 (22-32) mmol/L BUN 7 (7-17) mg/dL Creatinine 0.54 (0.52-1.04) mg/dL Estimated GFR > 60.0 (>60) mL/min BUN/Creatinine Ratio 13.0 (6-22) Glucose 107 H (70-100) mg/dL Calcium 9.2 (8.4-10.2) mg/dL Total Bilirubin 0.5 (0.2-1.3) mg/dL AST 23 (14-36) IU/L ALT 30 (<35) IU/L Alkaline Phosphatase 91 (38-126) U/L Total Protein 7.7 (6.3-8.2) g/dL Albumin 4.2 (3.5-5.0) g/dL Globulin 3.5 (1.7-4.1) g/dL Albumin/Globulin Ratio 1.2 (1.0-2.8) TSH 0.83 (0.47-4.68) uIU/mL Urine RBC (0-5/HPF) Urine WBC (0-5/HPF) Ur Squamous Epith Cells (0-5/HPF) Urine Bacteria (None) Ur Culture Indicated? Salicylates < 1.0 (<20) mg/dL U Opiates 300ng/mL cut (Negative) Ur Oxycodone Screen (Negative) Urine Methadone Screen (Negative) Acetaminophen < 10 L (10-30) ug/mL Ur Barbiturates Screen (Negative) U Tricyclic Antidepress (Negative) Ur Phencyclidine Scrn (Negative) Ur Amphetamines Screen (Negative) U Methamphetamines Scrn (Negative) Ur MDMA Scrn (Ecstasy) (Negative) U Benzodiazepines Scrn (Negative) Ida < 0.2 L (0.6-1.2) mmol/L Urine Cocaine Screen (Negative) U Marijuana (THC) Screen (Negative) Ethyl Alcohol < 10 ( - 10) mg/dL Point of Care Testing Test Results Negative Urine Dip Bedside Urine Glucose Negative Bedside Urine Bilirubin - Negative Bedside Urine Ketone - Negative Urine Specific [place] 1.015 Bedside Urine Occult Blood - Negative Bedside Urine pH 6.5 Bedside Urine Protein +/- 15 Bedside Urine Urobilinogen +/- 1mg Bedside Urine Nitrite - Negative Bedside Urine Leukocytes + 70 Esterase Discharge Plan Departure Patient Disposition: Xfer Psychiatric Hosp Clinical Impression: Suicidal ideation Referrals: Lillian Turner DO [Primary Care Provider] - <Rafa Bee DO - Last Filed: 11/14/19 21:48> Cosign ED Attending Cosignature Attestation: Patient was seen by social work. Is medically cleared. Is voluntary. Admitted to schedule Behavioral Health. This is arranged by social work. Patient is stable for transport.
[2019-11-14 13:48] LABS: Add Manual Diff / Slide Review NO; Basophils Absolute Auto 100 /uL (0-100); Basophils Percent Auto 1.2 % (0-2); Eosinophils Absolute Auto 100 /uL (0-450); Eosinophils Percent Auto 1.3 % (2-4); Hemoglobin 13.6 g/dL (12.0-16.0); Lymphocytes Absolute Auto 1900 /uL (1100-4500); Lymphocytes Percent Auto 21.1 % (25-40); Mean Corpuscular Hemoglobin 28.1 PG (26-34); Mean Corpuscular Volume 82.6 fL (80-100); Monocytes Absolute Auto 800 /uL (0-900); Monocytes Percent Auto 9.2 % (3-14); Neutrophils Absolute Auto 5900 /uL (1500-7000); Neutrophils Percent Auto 67.2 % (50-75); Platelet Count 234 X10^3/uL (150-400); Red Blood Cell Count 4.85 X10^6/uL (4.0-5.2); Red Cell Distribution Width 14.4 % (11.6-14.8); White Blood Cell Count 8.9 X10^3/uL (4.5-11.0)
--- NOTE | 2019-11-14 13:55 | PC.NURSE ---
Addendum entered by Selma Figueredo R.N. 11/14/19 13:57: pt remain on the guerney with mattress, family at bs. Original Note: pt cooperative at this time, with 1:1 sitter, bathroom door open at this time, and main door is open. familys belonging placed in locked cabinet
[2019-11-14 13:58] LABS: PTT Partial Thromboplastin Tim 32 SECONDS (26.4-36.2)
[2019-11-14 14:01] LABS: Acetaminophen < 10 ug/mL (10-30); Alanine Aminotransferase 30 IU/L (<35); Albumin 4.2 g/dL (3.5-5.0); Albumin Globulin Ratio 1.2 (1.0-2.8); Alkaline Phosphatase 91 U/L (38-126); Aspartate Aminotransferase 23 IU/L (14-36); Bilirubin Total 0.5 mg/dL (0.2-1.3); Blood Urea Nitrogen 7 mg/dL (7-17); Calcium 9.2 mg/dL (8.4-10.2); Carbon Dioxide 26 mmol/L (22-32); Chloride 104 mmol/L (98-107); Estimated Glomerular Filt Rate > 60.0 mL/min (>60); Ethanol (ETOH) < 10 mg/dL; Globulin 3.5 g/dL (1.7-4.1); Glucose 107 mg/dL (70-100); HEMOLYSIS < 15 (0-50); Potassium 3.6 mmol/L (3.4-5.1); Salicylate < 1.0 mg/dL (<20); Sodium 139 mmol/L (137-145); Total Protein 7.7 g/dL (6.3-8.2)
[2019-11-14 14:24] LABS: Lithium < 0.2 mmol/L (0.6-1.2)
[2019-11-14 14:57] LABS: Thyroid Stimulating Hormone 0.83 uIU/mL (0.47-4.68)
--- NOTE | 2019-11-14 15:30 | PC.NURSE ---
Patient is resting with eyes closed. Mother in-law at bedside.
--- NOTE | 2019-11-14 15:46 | PC.NURSE ---
Pt currently speaking with DCR.
--- NOTE | 2019-11-14 16:00 | PC.NURSE ---
Pt speaking with DCR and is emotional
--- NOTE | 2019-11-14 16:30 | PC.NURSE ---
SEQUINS STRINGER with patient.
--- NOTE | 2019-11-14 17:16 | PC.NURSE ---
Pt still speaking with LOADING UNIT TOOL SETTER
[2019-11-14 17:43] VITALS: BP 117/71; PULSE 68; O2SAT 97
--- NOTE | 2019-11-14 17:52 | PC.NURSE ---
OVEN ATTENDANT finished speaking with Pt., currently looking for a room for Pt. Pt. voluntary until not per Dr. Valdivia. dinner and snacks offered
--- NOTE | 2019-11-14 19:12 | CM.SWNOTE ---
EXECUTIVE WELLNESS PROGRAMS DIRECTOR note Following assessment, EXECUTIVE WELLNESS PROGRAMS DIRECTOR attempted to contact patient's psychiatrist and counselor via the [facility] after hours provider line. No immediate reponse. Plan: Patient currently unsafe to return home and high risk for repeated attempt (see assessment). EXECUTIVE WELLNESS PROGRAMS DIRECTOR is unable to confirm follow ups with psychiatrist and counselor at this time. EXECUTIVE WELLNESS PROGRAMS DIRECTOR to pursue behavioral health hospitalization. ISHA Jenkins
--- NOTE | 2019-11-14 19:30 | PC.NURSE ---
Pt currently speaking with DEVELOPMENTAL BEHAVIORAL PHYSICIAN and is upset
--- NOTE | 2019-11-14 19:45 | PC.NURSE ---
Pt. still with MEDICAL SCIENTIFIC OFFICER talking about options.
--- NOTE | 2019-11-14 20:06 | PC.NURSE ---
patient having tearful conversation with SPUN PASTE MACHINE OPERATOR and family in room.
--- NOTE | 2019-11-14 20:11 | CM.SWNOTE ---
SURGICAL CONSULTANT note SURGICAL CONSULTANT enters room to meet with patient and mom. SURGICAL CONSULTANT informs patient of attempt to reach patient's psychiatrist and counselor. SURGICAL CONSULTANT explains to patient and mother that it is the opinion of SURGICAL CONSULTANT and provider that patient is not safe to be released to home and that inpatient behavioral health hospitalization is being recommended. Patient becomes tearful and escalated and says I can't, I can't repeatedly. Patient explains that she cannot be away from her daughter. Patient states that this is the wrong decision and that she will never ask for help again, and threatens suicide upon discharge from inpatient treatment. Patient asks how long she will be hospitalized for. SURGICAL CONSULTANT informs patient that inpatient behavioral health hospitalizations are usually short term and often 3-5 days. Patient insists she cannot be away from her baby that long. Patient continues to say she can't go. SURGICAL CONSULTANT explained voluntary vs. involuntary status as related to mental health treatment, and explained that patient is currently considered voluntary, and if patient attempts to leave, the process will turn to involuntary. Patient indicates understands and says I'll go, but you're making the wrong choice. Mom begins speaking to patient, provides encouragement, validation, and ensures patient that she will take care of patient's daughter. Patient de-escalates. Mom refers to a conversation between patient and mom from previous day and reminds patient that mom had informed patient that hospitalization may be a recommendation from the ER. Patient becomes agreeable to inpatient treatment, and apologizes for initial response. SURGICAL CONSULTANT informed patient that she had nothing to apologize for, and that hospitalization can be a significant event in life. SURGICAL CONSULTANT encouraged patient and reflected that SURGICAL CONSULTANT had heard significant motivation for healing, desire to be a strong support for her daughter, and informed patient that he was hopeful for her success. Patient, mom and SURGICAL CONSULTANT begin discussing hospitals. Patient states her chest was hurting and asked SURGICAL CONSULTANT to inform provider and request anxiety medication. SURGICAL CONSULTANT exits room, and informs provider of chest pain and request. Plan: SURGICAL CONSULTANT to begin search for bed for voluntary treatment. Sriram Dial MS
--- NOTE | 2019-11-14 20:48 | CM.SWNOTE ---
RESIDENTIAL DESIGNER note RESIDENTIAL DESIGNER called [facility] to inquire about bed availability. RESIDENTIAL DESIGNER spoke with Ramila, who stated that there were open beds, and did a brief phone screening of patient. Ramila requested that RESIDENTIAL DESIGNER fax over the clinicals and that a physician will review. RESIDENTIAL DESIGNER faxed clinicals to [facility] and will wait for return call. ISHA Jenkins
--- NOTE | 2019-11-14 21:07 | PC.NURSE ---
patient sitting on stretcher with family at bedside. Sitter at doorway. Denies needs at this time.
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
--- NOTE | 2019-11-14 21:54 | CM.SWNOTE ---
CLIENT SERVICES ADMINISTRATOR note CLIENT SERVICES ADMINISTRATOR called [facility] to confirm check in location. Ramila at [facility] informed CLIENT SERVICES ADMINISTRATOR that patient was to check in at the ED. CLIENT SERVICES ADMINISTRATOR informed MOE Alfaro of this. ISHA Jenkins
[2019-11-14 22:09] VITALS: BP 133/94; PULSE 73; RESP 14; O2SAT 98
--- NOTE | 2019-11-14 22:15 | PC.NURSE ---
aurora carrington coordinated acceptance at [facility]. [facility] arranged for transport
--- NOTE | 2019-11-14 23:00 | PC.NURSE ---
message left for trent HILL for report asking for her to call back.
== END 2019-11-14 23:08 ==
PROVIDERS: Emergency Provider Nurse Practitioner Family; PCP Family Medicine
DX: R45.851 Suicidal ideations (principal); F41.9 Anxiety disorder, unspecified; H92.01 Otalgia, right ear
CPT/HCPCS: 36415; 80053; 80178; 80305; 80320; 80329; 81003; 81015; 81025; 84443; 85025; 85610; 85730; 93005; 99285; G0480